=== PATIENT | female | born 1950 | race Caucasian/White ===

== ENCOUNTER 2020-04-23 18:54 | Observation (INO) | payer MEDICARE ==
[~2020-04-23] VITALS: Ht 157.5 cm; Wt 82.9 kg
[~2020-04-23 18:54] MED LIST: AMLO-150 PO; LEVO100T5 PO; RANI150T4 PO
[2020-04-23 19:44] LABS: BASOPHILS % (AUTO) 1 % (0-1); EOSINOPHILS % (AUTO) 2 % (1-7); LYMPHOCYTES % (AUTO) 28 % (22-44); MEAN CORPUSCULAR HEMOGLOBIN 30.9 pg (27.0-34.8); MEAN CORPUSCULAR HGB CONC 33.9 g/dL (32.4-35.8); MEAN PLATELET VOLUME 9.7 fL (7.4-10.4); MONOCYTES % (AUTO) 5 % (2-9); NEUTROPHILS % (AUTO) 65 % (42-75); PLATELET COUNT 213 x10^3/uL (130-400); RED BLOOD COUNT 4.52 x10^6/uL (3.82-5.3); RED CELL DISTRIBUTION WIDTH 13.5 % (9.6-15.2)
[2020-04-23 19:45] LABS: MD NO
[2020-04-23 19:55] LABS: ALBUMIN 4.3 g/dL (3.4-5.0); ANION GAP 3 mmol/L (5-15); CALCIUM 9.6 mg/dL (8.5-10.1); CHLORIDE 105 mmol/L (98-107)
--- NOTE | 2020-04-23 20:01 | NUR ---
MD to bedside to [place] pt.
--- NOTE | 2020-04-23 20:01 | NUR ---
pt in room 6 walked there by tech. calm and cooperative, and in no acute distress at this time. pt states she doesn't have pain at this time. it comes and goes.
[2020-04-23 20:02] LABS: ALANINE AMINOTRANSFERASE 32 U/L (12-78); ALKALINE PHOSPHATASE 77 U/L (45-117); BILIRUBIN,TOTAL 0.6 mg/dL (0.2-1.0); TOTAL PROTEIN 8.5 g/dL (6.4-8.2); TROPONIN I 0.043 ng/mL (0.000-0.045)
[2020-04-23] MEDS ORDERED: ASPIRIN 325 MG TABLET ONE (20:26)
[2020-04-23] MEDS ORDERED: ASPIRIN 325 MG TABLET PO ONE (20:30)
[2020-04-23] MEDS ORDERED: ACETAMINOPHEN 325 MG TABLET PO PRN (22:00)
[2020-04-23] MEDS ORDERED: ENOXAPARIN 40 MG/0.4 ML SQ SCH (22:00)
[2020-04-23] MEDS ORDERED: hydrALAzine 20 MG/ML, 1ML IVPush PRN (22:00)
[2020-04-23] MEDS ORDERED: MELATONIN 5 MG TABLET PO PRN (22:00)
[2020-04-23] MEDS ORDERED: morphine SULFATE 10 MG/ML, 1ML IV PRN (22:00)
[2020-04-23] MEDS ORDERED: ONDANSETRON 2MG/ML, 2ML IVPush PRN (22:00)
--- NOTE | 2020-04-23 22:15 | NUR ---
report to casandra crawford. pt resting nsr @[id number]
[2020-04-23 22:57] LABS: FREE T4 (FREE THYROXINE) 0.9 ng/dL (0.76-1.46)
[2020-04-24 01:14] VITALS: BP 158/89
[2020-04-24 01:20] LABS: TROPONIN I 0.038 ng/mL (0.000-0.045)
[2020-04-24 05:08] LABS: CHOL/HDL RATIO 2.9; CHOLESTEROL, TOTAL 164 mg/dL (140-239); HDL CHOL % 35 % (28-40); HDL CHOLESTEROL (DIRECT) 57 mg/dL (40-60); LDL CHOLESTEROL,CALCULATED 82 mg/dL (54-169); LDL/HDL RATIO 1.4 (0.5-3.0); TRIGLYCERIDES 125 mg/dL (50-200); TROPONIN I 0.041 ng/mL (0.000-0.045); VLDL CHOLESTEROL 25 mg/dL (0-25)
[2020-04-24] MEDS ORDERED: ASPIRIN 325 MG TABLET EC PO SCH (06:00)
[2020-04-24 06:56] VITALS: BP 135/77
[2020-04-24] MEDS ORDERED: REGADENOSON 0.4 MG/5 ML SYRINGE ONE (08:56)
[2020-04-24] MEDS ORDERED: LEVOTHYROXINE 100 MCG TABLET PO SCH (09:00)
[2020-04-24] MEDS ORDERED: LOSARTAN 100 MG TAB PO SCH (09:00)
[2020-04-24] MEDS ORDERED: AMLODIPINE 5 MG TABLET PO SCH (09:00)
[2020-04-24 13:10] VITALS: BP 143/78
[2020-04-24] MEDS ORDERED: LOSA100T2 PO (14:21)
== END 2020-04-24 16:10 | disposition home or self-care (01) ==
LOC: ED 22:13 → INTOOBSV 22:17 → EDIP 22:17 → 5SO 23:25 → DCLOUNGE 04-24 16:00
PROVIDERS: ADMIT Family Medicine; ATTEND Internal Medicine
DX: R07.89 Other chest pain (principal); I10 Essential (primary) hypertension; E11.9 Type 2 diabetes mellitus without complications; E03.9 Hypothyroidism, unspecified; E78.5 Hyperlipidemia, unspecified; Z79.84 Long term (current) use of oral hypoglycemic drugs; Z79.899 Other long term (current) drug therapy; Z87.891 Personal history of nicotine dependence
CPT/HCPCS: 36415; 71045; 78452; 80053; 80061; 83036; 84439; 84443; 84484; 85025; 93005; 93017; 96372; 99285; A9502; G0378; J1650; J2785